=== PATIENT | female | born 1965 | race Caucasian/White ===

== ENCOUNTER 2025-08-30 11:42 | Inpatient (IN) | payer MEDICARE ==
[~2025-08-30] VITALS: Ht 167.6 cm; Wt 58.5 kg
[2025-08-30] MEDS ORDERED: BISO5TAB14 PO (12:01)
[2025-08-30 12:41] LABS: BASO # 0.1 10^3/uL (0.0-0.2); BASO % 0.4 % (0.0-1.0); EOS # 0.0 10^3/uL (0.0-0.5); EOS % 0.1 % (0.0-3.0); LYMPH # 1.0 10^3/uL (1.5-5.0); LYMPH % 6.4 % (24.0-44.0); MONO # 1.0 10^3/uL (0.0-0.8); MONO % 6.7 % (2.0-8.0); NEUTROPHILS # 13.0 10^3/uL (1.5-8.5); NEUTROPHILS % 85.5 % (36.0-66.0); PLATELET COUNT, AUTOMATED 414 10^3/uL (150-450)
[2025-08-30 13:10] LABS: INR 1.31
[2025-08-30 13:17] LABS: ALT/SGPT 72.0 U/L (7.0-40); AST/SGOT 222.0 U/L (<34); CALCIUM LEVEL 8.9 MG/DL (8.3-10.6); CARBON DIOXIDE LEVEL 26.0 MMOL/L (20-31); CHLORIDE LEVEL 97.0 MMOL/L (98-107); CREATININE FOR GFR 1.52 MG/DL (0.55-1.30); GLOMERULAR FILTRATION RATE 39.0 (>45); POTASSIUM SERUM 3.8 MMOL/L (3.5-5.1); SODIUM LEVEL 132.0 MMOL/L (136-145)
[2025-08-30] MEDS ORDERED: ESTR1GEL9 TOP (19:34)
[2025-08-30] MEDS ORDERED: OYST1TAB PO (19:36)
[2025-08-30] MEDS ORDERED: GNP250TA9 PO (19:36)
[2025-08-30] MEDS ORDERED: VITAD1000T PO (19:36)
[2025-08-30] MEDS ORDERED: HOME MED LIST COMPLETE! XX SCH (19:40)
[2025-08-30 21:30] LABS: KETONE, URINE AUTO RFX NEGATIVE (NEGATIVE); LEUKOCYTE ESTERASE UR AUTO RFX NEGATIVE (NEGATIVE); MUCUS, URINE RFX SMALL (NEGATIVE); NITRITE, URINE AUTO RFX NEGATIVE (NEGATIVE); RBC, URINE AUTO RFX 2 /HPF (0-3); SQUAM EPITHELIAL CELL UR AURFX 2 /HPF (0-6); WBC, URINE AUTO RFX 5 /HPF (0-3)
[2025-08-30 22:09] LABS: AMPHETAMINES LEVEL URINE NEGATIVE (NEGATIVE); BARBITURATES URINE NEGATIVE (NEGATIVE); BENZODIAZEPINES URINE NEGATIVE (NEGATIVE); CANNABINOIDS URINE NEGATIVE (NEGATIVE); COCAINE METABOLITE URINE NEGATIVE (NEGATIVE); METHADONE URINE NEGATIVE (NEGATIVE); OPIATES URINE NEGATIVE (NEGATIVE); PHENCYCLIDINE URINE NEGATIVE (NEGATIVE)
[2025-08-30] MEDS ORDERED: MAALOX 30 ML SUSP *UDC PO PRN (22:55)
[2025-08-31] MEDS: LR 1,000 ML IV SCH (00:05)
[2025-08-31 00:50] LABS: IRON (FE) 72 UG/DL (50-170); PERCENT SATURATION 47.1 % (13.2-45.0)
[2025-08-31 07:34] LABS: PLATELET COUNT, AUTOMATED 330 10^3/uL (150-450)
[2025-08-31 07:42] LABS: CALCIUM LEVEL 7.9 MG/DL (8.3-10.6); CARBON DIOXIDE LEVEL 25.0 MMOL/L (20-31); CHLORIDE LEVEL 95.0 MMOL/L (98-107); CREATININE FOR GFR 1.66 MG/DL (0.55-1.30); GLOMERULAR FILTRATION RATE 35.1 (>45); MAGNESIUM LEVEL 2.2 MG/DL (1.8-2.4); POTASSIUM SERUM 3.3 MMOL/L (3.5-5.1); SODIUM LEVEL 131.0 MMOL/L (136-145)
[2025-08-31 07:45] LABS: INR 1.43
[2025-08-31] MEDS: UNRESOLVED PATIENT OWN MED ORDER XX SCH (08:54)
[2025-08-31] MEDS ORDERED: ESTROGENS VAGINAL CREAM 30 GM PV SCH (09:00)
[2025-08-31] MEDS: OYSTER SHELL CALCIUM 500 MG TAB PO SCH (09:03)
[2025-08-31] MEDS: POTASSIUM CHLORIDE 10MEQ SR TABLET PO ONE (09:55)
[2025-08-31 10:00] LABS: ALT/SGPT 57.0 U/L (7.0-40); AST/SGOT 172.0 U/L (<34)
[2025-08-31 15:26] VITALS: BP 107/59; TEMP 98; O2SAT 98
[2025-08-31 20:06] VITALS: BP 99/54; TEMP 97.8; O2SAT 95
[2025-09-01 03:40] VITALS: BP 96/49; TEMP 97.5; O2SAT 97
[2025-09-01 04:26] LABS: HEPATITIS C VIRUS ABY INDEX 0.06 INDEX (<0.8)
[2025-09-01 06:13] LABS: PLATELET COUNT, AUTOMATED 408 10^3/uL (150-450)
[2025-09-01 06:45] LABS: ALT/SGPT 63.0 U/L (7.0-40); AST/SGOT 186.0 U/L (<34); CALCIUM LEVEL 8.6 MG/DL (8.3-10.6); CARBON DIOXIDE LEVEL 25.0 MMOL/L (20-31); CHLORIDE LEVEL 99.0 MMOL/L (98-107); CREATININE FOR GFR 1.45 MG/DL (0.55-1.30); GLOMERULAR FILTRATION RATE 41.3 (>45); POTASSIUM SERUM 4.0 MMOL/L (3.5-5.1); SODIUM LEVEL 135.0 MMOL/L (136-145)
[2025-09-01 06:50] LABS: INR 1.31
[2025-09-01] MEDS: HEPARIN SOD 5000 UNITS/ML 1 ML VIAL/SYRINGE SQ SCH (10:57)
[2025-09-01 12:00] VITALS: BP 96/52; TEMP 97.8; O2SAT 97
[2025-09-01 21:12] VITALS: BP 109/59; TEMP 97.8; O2SAT 98
[2025-09-02 04:13] VITALS: BP 105/57; TEMP 97.7; O2SAT 97
[2025-09-02 07:03] LABS: PLATELET COUNT, AUTOMATED 369 10^3/uL (150-450)
[2025-09-02 07:28] LABS: INR 1.44
[2025-09-02 07:51] LABS: ALT/SGPT 53.0 U/L (7.0-40); AST/SGOT 160.0 U/L (<34); CALCIUM LEVEL 8.4 MG/DL (8.3-10.6); CARBON DIOXIDE LEVEL 25.0 MMOL/L (20-31); CHLORIDE LEVEL 100.0 MMOL/L (98-107); CREATININE FOR GFR 1.52 MG/DL (0.55-1.30); GLOMERULAR FILTRATION RATE 39.0 (>45); POTASSIUM SERUM 3.9 MMOL/L (3.5-5.1); SODIUM LEVEL 134.0 MMOL/L (136-145)
[2025-09-02 12:30] VITALS: BP 99/54; TEMP 97.9; O2SAT 98
[2025-09-02 20:46] VITALS: BP 114/59; TEMP 98.2; O2SAT 98
[2025-09-03 03:59] VITALS: BP 106/59; TEMP 98; O2SAT 97
[2025-09-03 06:09] LABS: PLATELET COUNT, AUTOMATED 354 10^3/uL (150-450)
[2025-09-03 06:31] LABS: INR 1.47
[2025-09-03 06:36] LABS: ALT/SGPT 51.0 U/L (7.0-40); AST/SGOT 149.0 U/L (<34); CALCIUM LEVEL 8.3 MG/DL (8.3-10.6); CARBON DIOXIDE LEVEL 23.0 MMOL/L (20-31); CHLORIDE LEVEL 103.0 MMOL/L (98-107); CREATININE FOR GFR 1.62 MG/DL (0.55-1.30); GLOMERULAR FILTRATION RATE 36.2 (>45); POTASSIUM SERUM 3.9 MMOL/L (3.5-5.1); SODIUM LEVEL 135.0 MMOL/L (136-145)
[2025-09-03 12:17] VITALS: BP 108/87; TEMP 97.9; O2SAT 96
[2025-09-03 14:06] LABS: KETONE, URINE AUTO RFX NEGATIVE (NEGATIVE); LEUKOCYTE ESTERASE UR AUTO RFX NEGATIVE (NEGATIVE); MUCUS, URINE RFX SMALL (NEGATIVE); NITRITE, URINE AUTO RFX NEGATIVE (NEGATIVE); RBC, URINE AUTO RFX 1 /HPF (0-3); SQUAM EPITHELIAL CELL UR AURFX 7 /HPF (0-6); WBC, URINE AUTO RFX 3 /HPF (0-3)
[2025-09-03 16:04] VITALS: BP 113/56; TEMP 97.9; O2SAT 98
[2025-09-03 18:08] VITALS: BP 118/61; TEMP 97.9
[2025-09-03 20:26] VITALS: BP 108/64; TEMP 97.5; O2SAT 99
[2025-09-03 22:55] VITALS: BP 98/57; TEMP 98; O2SAT 99
[2025-09-04] VITALS (8 sets, daily range): BP systolic 93–116; BP diastolic 50–62; TEMP 97.9–98.5; O2SAT 97–98
[2025-09-04 06:24] LABS: PLATELET COUNT, AUTOMATED 341 10^3/uL (150-450)
[2025-09-04 06:49] LABS: ALT/SGPT 46.0 U/L (7.0-40); AST/SGOT 134.0 U/L (<34); CALCIUM LEVEL 8.2 MG/DL (8.3-10.6); CARBON DIOXIDE LEVEL 24.0 MMOL/L (20-31); CHLORIDE LEVEL 103.0 MMOL/L (98-107); CREATININE FOR GFR 1.49 MG/DL (0.55-1.30); GLOMERULAR FILTRATION RATE 40.0 (>45); POTASSIUM SERUM 3.7 MMOL/L (3.5-5.1); SODIUM LEVEL 136.0 MMOL/L (136-145)
[2025-09-04 06:59] LABS: INR 1.54
[2025-09-04] MEDS: SPIRONOLACTONE 50 MG TAB PO ONE (12:34)
[2025-09-04] MEDS: FUROSEMIDE 20 MG TAB PO ONE (12:35)
[2025-09-04] MEDS: BENZONATATE 100 MG CAPSULE PO PRN (12:37)
[2025-09-05 05:27] VITALS: BP 104/62; TEMP 98.8; O2SAT 98
[2025-09-05 05:55] LABS: PLATELET COUNT, AUTOMATED 314 10^3/uL (150-450)
[2025-09-05 06:21] LABS: INR 1.68
[2025-09-05 06:26] LABS: ALT/SGPT 40.0 U/L (7.0-40); AST/SGOT 121.0 U/L (<34); CALCIUM LEVEL 8.2 MG/DL (8.3-10.6); CARBON DIOXIDE LEVEL 23.0 MMOL/L (20-31); CHLORIDE LEVEL 103.0 MMOL/L (98-107); CREATININE FOR GFR 1.43 MG/DL (0.55-1.30); GLOMERULAR FILTRATION RATE 42.0 (>45); POTASSIUM SERUM 3.6 MMOL/L (3.5-5.1); SODIUM LEVEL 136.0 MMOL/L (136-145)
[2025-09-05] MEDS ORDERED: FURO20TA2 PO (08:07)
[2025-09-05] MEDS ORDERED: ALDA50TA2 PO (08:07)
[2025-09-05 09:35] VITALS: BP 116/65
[2025-09-05] MEDS: FUROSEMIDE 20 MG TAB PO SCH (09:35)
[2025-09-05] MEDS: SPIRONOLACTONE 50 MG TAB PO SCH (09:35)
[2025-09-05] MEDS ORDERED: FURO40TA2 PO ×2 (10:15→11:10)
[2025-09-05 11:50] VITALS: BP 111/55; TEMP 98.6; O2SAT 98
== END 2025-09-05 11:52 | disposition home or self-care (01) | DRG 442 ==
LOC: M ED 15:43 → M ED INP 22:53 → M MSPAV 08-31 15:27
PROVIDERS: ADMIT Student in an Organized Health Care Education/Training Program; ATTEND Student in an Organized Health Care Education/Training Program
PROC: 30233J1 Transfusion of Nonautologous Serum Albumin into Peripheral Vein, Percutaneous Approach (ICD-10-PCS; principal; 2025-09-03)
PROC: 0W9G3ZZ Drainage of Peritoneal Cavity, Percutaneous Approach (ICD-10-PCS; 2025-09-03)
DX: K71.9 Toxic liver disease, unspecified (principal); K76.6 Portal hypertension; N17.9 Acute kidney failure, unspecified; K70.31 Alcoholic cirrhosis of liver with ascites; R19.7 Diarrhea, unspecified; T37.0X5A Adverse effect of sulfonamides, initial encounter; K70.10 Alcoholic hepatitis without ascites; Z79.899 Other long term (current) drug therapy; Z79.890 Hormone replacement therapy; Z88.8 Allergy status to other drugs, medicaments and biological substances; Z91.040 Latex allergy status; E80.6 Other disorders of bilirubin metabolism